=== PATIENT | female | born 1940 | race Caucasian/White ===

== ENCOUNTER → 2017-01-30 | Outpatient (CLI) | payer MEDICARE ==
--- NOTE | ~2017-01-30 | ENPV ---
Carotid Duplex Study Demographics Patient Name JUDIE MOORE Date of Study 01/30/2017 Patient Number [id number] Gender Female Date of 1940 Age 76 Visit Number [id number] Height Accession Number [id number] Weight Room Number BSA BMI Referring Jonathan Santacruz MD Interpreting Satnam Garcia MD Physician Physician Physician Ordering Jonathan Santacruz Manager Wealth Management Physician Grounds And Nursery Specialist Gonzalo Sanatcruz BS, RT Conclusions Summary The right internal carotid artery has a mild 1-39%, plaque and stenosis. The right vertebral artery is present with antegrade flow. The left internal carotid artery has moderate 50-69%, plaque and stenosis. The left vertebral artery is present with antegrade flow. Tortuous internal carotids bilaterally. Procedure Type of Study: Cerebral:Carotid, Carotid Doppler Bilateral. Indications for Study:Bruit. Patient Status:Routine. Study Location:Vascular Lab. Technical Quality:Adequate visualization. Velocities are measured in cm/s ; Diameters are measured in cm Carotid Right Measurements Carotid Left Measurements + +--------+--------+ + + + +--------+ --------+ + + !Location !PSV !EDV !Angle !%Stenosis ! !Location !PSV ! EDV !Angle !%Stenosis ! + +--------+--------+ + + + +--------+ --------+ + + !Prox CCA !147 !34 !60 ! ! !Prox CCA !114 ! 35 !60 ! ! + +--------+--------+ + + + +--------+ --------+ + + !Dist CCA !112 !27 !60 ! ! !Dist CCA !103 ! 30 !60 ! ! + +--------+--------+ + + + +--------+ --------+ + + !Prox ICA !125 !33 !60 ! ! !Prox ICA !123 ! 46 !60 ! ! + +--------+--------+ + + + +--------+ --------+ + + !Dist ICA !125 !46 !60 ! ! !Dist ICA !184 ! 86 !44 ! ! + +--------+--------+ + + + +--------+ --------+ + + !Prox ECA !135 ! !60 ! ! !Prox ECA !107 ! !60 ! ! + +--------+--------+ + + + +--------+ --------+ + + !Vertebral !85 ! !60 ! ! !Vertebral !165 ! !60 ! ! + +--------+--------+ + + + +--------+ --------+ + + !Subclavian !115 ! !60 ! ! !Subclavian !171 ! !60 ! ! + +--------+--------+ + + + +--------+ --------+ + + - There is antegrade vertebral flow noted on the right side. - There is antegrade verte bral flow noted on the left side. - Add'l Measurements:ICAPSV/CCAPSV 0.85.ICAEDV/CCAEDV 1.37. - Add'l Measurements:ICAPS V/CCAPSV 1.61.ICAEDV/CCAEDV 2.48. Signature dtt: ESVIN NAIK dtd: 01/30/17 0849 Physician Self Edit
== END | disposition disaster alternative care site (69) ==
LOC: GRAD 08:18
DX: E07.89 Other specified disorders of thyroid (principal); E04.2 Nontoxic multinodular goiter; I65.23 Occlusion and stenosis of bilateral carotid arteries; R09.89 Other specified symptoms and signs involving the circulatory and respiratory systems

== ENCOUNTER → 2017-02-11 | Outpatient (CLI) | payer MEDICARE | END | disposition disaster alternative care site (69) | LOC: GRAD 09:30 | DX: E05.90 Thyrotoxicosis, unspecified without thyrotoxic crisis or storm (principal); R93.8 Abnormal findings on diagnostic imaging of other specified body structures | CPT/HCPCS: A9516 ==